=== PATIENT | male | born 1950 | race Asian ===

== ENCOUNTER 2017-10-19 06:38 | Emergency (ER) | payer SELFPAY ==
[~2017-10-19] VITALS: Ht 170.2 cm; Wt 76.3 kg
[2017-10-19 07:00] VITALS: Ht 170.2 cm; Wt 76.3 kg
[2017-10-19 10:05] VITALS: BP 125/76
== END 2017-10-19 10:05 | disposition home or self-care (01) ==
LOC: ED 06:38
DX: S02.32XA Fracture of orbital floor, left side, initial encounter for closed fracture (principal); I10 Essential (primary) hypertension; Z88.6 Allergy status to analgesic agent; Y04.8XXA Assault by other bodily force, initial encounter; Y93.89 Activity, other specified; Y92.89 Other specified places as the place of occurrence of the external cause; Y99.8 Other external cause status
CPT/HCPCS: J2270